=== PATIENT | female | born 1995 | race Caucasian/White ===

== ENCOUNTER 2018-05-25 14:04 | Emergency (ER) | payer OTHER ==
--- NOTE | 2018-05-25 15:08 | EDPHY ---
H & P Stated Complaint: suicidal ideation Time Seen by Provider: 05/25/18 14:09 HPI/ROS: 23-year-old female presents complaining of ongoing depression markedly worsened over the last 2 weeks with suicidal ideation. She states 6 months ago she attempted suicide with an overdose of Percocet and never reported to any hospital. She does not currently have a therapist or psychiatrist. She states she has been thinking stabbing herself. She had denies any recent changes or events that of contributed to her worsening depression. She states"I just want to feel this way anymore" Review of systems As per HPI General no fever no chills no weakness HEENT no eye pain no eye discharge. No eye redness, no sore throat Respiratory no cough, no shortness of breath Cardiac no chest pain, no peripheral edema GI no abdominal pain, no diarrhea, no constipation, no nausea, no vomiting no flank pain, no hematuria, no dysuria Musculoskeletal no myalgias, no joint pain Heme no easy bruising, no easy bleeding Endo no polyuria, no polydipsia Skin no rashes, no pruritus Neuro no syncope, no dizziness, no headaches Positive depression, positive suicidal ideation Source: Patient Exam Limitations: No limitations - Personal History LMP (Females 10-55): 15-21 Days Ago Current Tetanus Diphtheria and Acellular Pertussis (TDAP): Yes Tetanus Vaccine Date: unsure - Medical/Surgical History Hx Asthma: Yes Hx Chronic Respiratory Disease: No Hx Diabetes: No Hx Cardiac Disease: No Hx Renal Disease: No Hx Cirrhosis: No Hx Alcoholism: No Hx HIV/AIDS: No Hx Splenectomy or Spleen Trauma: No Other PMH: suicide attempt 6 months ago - Family History Significant Family History: No pertinent family hx - Social History Smoking Status: Current every day smoker - Physical Exam Exam: A 23-year-old female alert and oriented, tearful Vital signs stable Atraumatic normocephalic Neck no JVD Lungs clear to auscultation, no respiratory distress Heart regular rate and rhythm Extremities no cyanosis clubbing edema Skin-no evidence of trauma Constitutional: Initial Vital Signs Temperature (C) 36.8 C 05/25/18 14:32 Heart Rate 111 H 05/25/18 14:32 Respiratory Rate 20 05/25/18 14:32 Blood Pressure 136/100 H 05/25/18 14:32 O2 Sat (%) 93 05/25/18 14:32 O2 Delivery Mode Room Air Allergies/Adverse Reactions: No Known Allergies Allergy (Unverified 05/25/18 14:13) Home Medications: Medication Instructions Recorded NK [No Known Home Meds] 05/25/18 Medical Decision Making ED Course/Re-evaluation: Patient presents for depression and suicidal ideation. I contacted [facility] and discussed with Dr. Sandoval patient to be transferred to [facility] EMTALA form, M1 hold completed [facility] contacted for transfer. Imp depression, si Plan transfer to [facility] ED for psychiatric evaluation. Differential Diagnosis: Differential diagnosis considered but not limited to: Depression, anxiety, suicidal ideation, homicidal ideation, suicidal gesture Departure - Departure Disposition: [facility] ER Clinical Impression: Suicidal ideation Condition: Serious Referrals: Rekha Carl MD [Primary Care Provider] - As per Instructions
--- NOTE | 2018-05-25 15:49 | EDPHY ---
H & P Stated Complaint: suicidal ideation - Personal History LMP (Females 10-55): 15-21 Days Ago Current Tetanus Diphtheria and Acellular Pertussis (TDAP): Yes Tetanus Vaccine Date: unsure - Medical/Surgical History Hx Asthma: Yes Hx Chronic Respiratory Disease: No Hx Diabetes: No Hx Cardiac Disease: No Hx Renal Disease: No Hx Cirrhosis: No Hx Alcoholism: No Hx HIV/AIDS: No Hx Splenectomy or Spleen Trauma: No Other PMH: suicide attempt 6 months ago - Family History Significant Family History: No pertinent family hx - Social History Smoking Status: Current every day smoker Time Seen by Provider: 05/25/18 14:09 Constitutional: Initial Vital Signs Temperature (C) 36.8 C 05/25/18 14:32 Heart Rate 111 H 05/25/18 14:32 Respiratory Rate 20 05/25/18 14:32 Blood Pressure 136/100 H 05/25/18 14:32 O2 Sat (%) 93 05/25/18 14:32 O2 Delivery Mode Room Air Allergies/Adverse Reactions: No Known Allergies Allergy (Unverified 05/25/18 14:13) Home Medications: Medication Instructions Recorded NK [No Known Home Meds] 05/25/18 Medical Decision Making ED Course/Re-evaluation: CHIEF COMPLAINT: Psychiatric evaluation HISTORY OF PRESENT ILLNESS: The patient is a 23 y/o female arriving via EMS from [facility] for ongoing depression markedly worsened over the last 2 weeks with suicidal ideation. She states 6 months ago she attempted suicide with an overdose of Percocet and never reported to any hospital. She does not currently have a therapist or psychiatrist. She states she has been thinking about stabbing herself. She had denies any recent changes or events that of contributed to her worsening depression. She states "I just want to feel this way anymore". Due to the suicidal ideation she was sent to this emergency department for further evaluation. No headache, chest pain, shortness of breath, abdominal pain, urinary or bowel complaints, fevers, numbness, paresthesias. REVIEW OF SYSTEMS: A comprehensive 10 system review of systems is otherwise negative aside from elements mentioned in the history of present illness and medical decision making. PHYSICAL EXAM: General Appearance: Alert, well hydrated, appropriate, and non-toxic appearing. Head: Atraumatic without scalp tenderness or obvious injury Eyes: Pupils equal, round, reactive to light and accommodation, EOMI, no trauma , no injection. Ears: Clear bilaterally, no perforation, normal landmarks Nose: Atraumatic, no rhinorrhea, clear. Throat: There is no erythema or exudates, no lesions, normal tonsils, mucus membranes moist. Neck: Supple, 2+ carotid upstroke, nontender, no lymphadenopathy. Respiratory: No retractions, no distress, no wheezes, and no accessory muscle use. Lungs are clear to auscultation bilaterally. Cardiovascular: Regular rate and rhythm, no murmurs, rubs, or gallops. Bilateral carotid, radial, dorsalis pedis, and posterior tibial pulses intact. Good capillary refill all extremities. Gastrointestinal: Abdomen is soft, nontender, non-distended, no masses, no rebound, no guarding, no peritoneal signs. Musculoskeletal: Normal active ROM of all extremities, atraumatic. Neurological: Alert, appropriate, and interactive. The patient has normal DTRs and non-focal cranial nerves, motor, sensory, and cerebellar exam. Skin: No rashes, good turgor, no nodules on palpation. Past medical history: Suicidal ideations with a suicide attempt Past surgical history: Denies Family history: Denies Social history: Lives in [place], single, student DIFFERENTIAL DIAGNOSIS: The differential diagnosis for the patient's depression included but was not limited to functional and major depression, situational depression, medication side effect, drugs, and alcohol abuse. MEDICAL DECISION MAKING: The patient is a 23 y/o female arriving from [facility] for suicidal ideations. Patient is in no acute distress and is hemodynamically stable. We are awaiting psychiatric team's evaluation. Patient has known history of psychiatric disorders and is here for evaluation. 0: I have placed this patient on a detainer. 0: 1mg PO Ativan administered. 2154: 20mg PO Ambien administered so the patient can sleep tonight. 2299: Patient care turned over to Dr. Palomares at shift change. Psych evaluation pending at this time. (Rafita Dorman) 6:00 a.m.- Patient stable throughout my shift, sleeping for most of it. She is awaiting mental health evaluation this morning. The case will be signed out to Dr. Sanford at 7:00 a.m. At change of shift. (Rosalba Palomares) Other Provider: Care assumed at 0650 from Marielle with plan for mental health evaluation, pending. 952: not currently suicidal, evaluation complete with mom present, recommendation of Jh Blake And psychiatric evaluation is to vacated the mental health hold and discharge the patient, the patient and the mother both feel comfortable with this disposition. (Antonio Sanford) - Data Points Laboratory Results: Laboratory Results 05/25/18 15:59 05/25/18 15:59 Medications Given: Discontinued Medications Lorazepam (Ativan) 1 mg PO EDNOW ONE Stop: 05/25/18 19:31 Last Admin: 05/25/18 19:33 Dose: 1 mg Lorazepam (Ativan) 1 mg PO EDNOW ONE Stop: 05/26/18 08:10 Last Admin: 05/26/18 08:19 Dose: 1 mg Zolpidem Tartrate (Ambien) 20 mg PO EDNOW ONE Stop: 05/25/18 21:53 Last Admin: 05/25/18 21:55 Dose: 20 mg Departure - Departure Disposition: Home, Routine, Self-Care Clinical Impression: Suicidal ideation, Severe major depression Condition: Good Instructions: Suicide Prevention (ED) Referrals: Rekha Carl MD [Primary Care Provider] - As per Instructions Report Scribed for: Rafita Dorman Report Scribed by: Michelle Augustine Date of Report: 05/25/18 Time of Report: 15:51
[2018-05-25 16:35] LABS: PLATELET COUNT 301 10^3/uL (150-400)
[2018-05-25] MEDS ORDERED: LORazepam 1 MG TAB ONE (19:29)
[2018-05-25] MEDS ORDERED: LORazepam 1 MG TAB PO ONE (19:30)
[2018-05-25] MEDS ORDERED: ZOLPIDEM TARTRATE 5 MG TAB PO ONE (21:52)
[2018-05-25] MEDS ORDERED: ZOLPIDEM TARTRATE 5 MG TAB ONE (21:52)
[2018-05-26] MEDS ORDERED: LORazepam 1 MG TAB PO ONE (08:09)
[2018-05-26 10:04] VITALS: BP 110/75
--- NOTE | 2018-05-26 10:36 | ASMTTLCEVL ---
TLC Evaluation - Basic Information Evaluation Start Date and 05/26/2018 09:00 AM Time Hospital Status Answers: M1 Hold 72-hr M1 Hold Start Date 05/25/2018 02:23 PM and Time Patient statement Notes: I went to the urgent care in [place]. I really just wanted to come in to get help. Melia been feeling more depressed over the past couple of weeks. On Saturday night, I was thinking of getting non-prescribed Xanax to overdose with, but couldnt find any. I really dont want to , I just want to get some help. I can ensure my own safety if I can be discharged. I would like a referral for help. Narrative Notes: Pt is a 23 yo, single, not employed, light-complected female, with reported past history of depression which began in high school, initially self-presented to [facility] Urgent care ED in [place] with above chief complaints and was placed on M1 hold by [facility] provider and transported by ambulance to [facility] ED. Per M1: 23 yo F with severe depression, suicidal ideation, had considered stabbing herself. She came in today because she doesnt want to feel this way anymore, she wants help. Pt reported having previously been prescribed Lexapro and Prozac by her PCP Dr. Cunningham at [facility], but pt reported she did not consistently take either and has not been on either medications for over 6 months. She is currently prescribed Adderall (dosage unrecalled by pt) but has not taken any in the past month. She is prescribed Ambien 10 mg po 2 tabs at for sleep and has been on Ambien since high school. Pt reported previously being diagnosed with ADD while in middle school. Pt denied any past history of cutting/burning/self-harm behaviors and denied any history of eating disorder behaviors. Pt endorsed having some suicidal ideation but currently denied intent/plans to act on these thoughts and verbalized being able to ensure own safety in an outpatient setting. Diagnosis History Notes: Depression which began in high school. ADD diagnosed when in middle school. Prior suicide attempts Notes: Pt reported one prior suicide attempt 6 months ago in which she took an overdose of non-prescribed Percocet tabs. She did not seek medical assistance after the overdose and reported I just felt really sick the next day. Prior hospitalizations Notes: Pt denied any prior history of psychiatric hospitalization or rehabs. Treatment Responses Notes: N/A. History of violence Notes: Pt denied any past history of aggression/violence. Therapist: None. Psychiatrist: None currently. Has PCP Dr. Cunningham with [facility] who has prescribed Lexapro and Prozac in the past. Medications (name, dosage, route, freq uency) Notes: PCP Dr. Cunningham with [facility] who has prescribed Lexapro and Prozac in the past. Current home medications include: Adderall (dosage unrecalled by pt and pt has not taken it in a month); and Ambien 10 mg 2 tabs po hs. Allergies/Reaction Notes: NKDA. Sleep Notes: Pt reported it varies from sleeping all day to not at all. Appetite Notes: Pt reported having decreased appetite and that my stomach sometimes hurts when I eat. Medical/Surgical history Notes: Noncontributory. She reported having childhood asthma in high school only. Substance use history (frequency, intensity, his tory, duration) Notes: Pt reported having first tried alcohol at age 15. She reported she typically will drink alcohol to point of intoxication about 3 times/week. Her last use was on Saturday night 05/24/18, drank 5-6 shots of liquor. She reported having first tried marijuana at age 14 with last reported use being over 2 years ago. She reported she first tried cocaine at age 19 and will use it on a weekly basis/socially, with last reported use being 2 months ago. Pt denied any other illicit substance use history. BAL upon arrival was .07 at 1559 hrs on 05/25/18. UDS results negative for all tested substances. Family composition Notes: Pt reported that her parents officially when pt was 16 yo, but added that she was primarily raised by her mother. Pt is an only child. Need for family Answers: Yes participation in patient's care Family psychiatric/substance abuse history Notes: Mother has history of depression. Her father has history of schizophrenia. Maternal aunt and uncle have history of alcoholism as does a maternal grandfather. Developmental history Notes: Pt was born and raised in the [facility]. She appeared to have achieved normal childhood developmental milestones, however, began using alcohol and marijuana as an early teenager. Pt denied any childhood history of TBIs, LOC or concussions. Pt denied any childhood history of physical, emotional or sexual abuse/trauma. Abuse concerns Answers: None Marital status/children Notes: Pt is single, never , no dependents, and is not involved in a dating relationship. Living situation Notes: Pt resides with her mother, Frances in a townhouse in [place], [place]. Sexual history/orientation Notes: Not active. Heterosexual. Peer support/family strengths Notes: Pt identified her mother as her support. Education level/history Notes: Pt graduated from high school and was a sophomore attending [employer] until she dropped out. She was majoring in chemistry. Work history Notes: Pt is not employed. Notes: None. Legal Notes: Pt reported obtaining two MIP charges in high school for alcohol. Religion/Spiritual Notes: Pt reported having no particular jehovah's witness/spiritual beliefs/affiliations which would impact treatment. Leisure Notes: Pt stated sleep, drink. Collateral Notes: Per mother, Yolanda Simms who was present with pt in ED. Patient's strengths Answers: Honest (Please select at least TWO strengths): Motivated for Treatment Supportive Family Willingness TLC Evaluation - Mental Status Exam Appearance: Answers: Appropriate Clean Neat Eye Contact: Answers: Good/Direct Mood: Answers: Depressed Sad Affect: Answers: Appropriate Calm Congruent w/ Mood Flat Sad Subdued Behavior: Answers: Appropriate Cooperative Speech: Answers: Relevant Logical Clear Coherent Thought Process: Answers: Organized Oriented Alert Goal Oriented Intact Insight: Answers: Good Judgement: Answers: Good Depression Answers: Crying Spells Signs/Symptoms: Difficulty Concentrating Diminished Interest Diminished Pleasure Flat Affect Psychomotor Retardation Sad Mood Withdrawn Worthlessness Hallucinations: Answers: None Current Stage of Change Answers: Action Pt reported to have Answers: Yes suicidal/self-injuring ideation/behavior? Pt reported to be making Answers: No suicidal/self-injuring threats? Pt reported to have Answers: No aggression/assault ideation/behavior? Pt reported to be making Answers: No aggression/assault threats? Pt exhibits inability to Answers: No care for self/grave disability? Ideation/behavior is Answers: No chronic? Patient has a specific Answers: No plan? Pt has access to means to Answers: No execute the plan? Ideation involves Answers: No serious/lethal intent? Ideation has Answers: No delusional/hallucinatory content? History of Answers: Yes suicidal/self-injuring ideation, behavior, or threats? History of Answers: No aggressive/assaultive ideation, behavior, or threats? History of serious Answers: No physical harm to self/others while in treatment setting? TLC Evaluation - Suicide/Homicide Risk Suicide Risk Factors: Answers: Alcohol/Heavy Drug Use Anhedonia Flat Affect Global Insomnia Inadequate Social Support Intoxication Lack of Religion Support Lack of Social Support Lack/Loss of Employment Major Depression Prior Suicide Attempt(s) Single Homicide/violence risk Answers: None factors: Current Suicidal Answers: Yes Ideation? Current Suicide Ideation Since Saturday. Frequency: Current Suicidal Ideation Answers: Yes in the Past 48 Hours? Current Suicidal Ideation Answers: No in the Past Month? Current Suicidal Answers: No Ideation, Worst Ever? Suicide Internal Answers: Absence of Psychosis Protective Factors: Cassie with Stress Suicide External Answers: Positive Therapeutic Protective Factors: Relationships Ranking of patient's Answers: Low suicidal risk: Ranking of patient's Answers: Low homicidal risk: TLC Evaluation - Wrap-up BDI Total Score: 50 BDI Question #2 Score: 3 BDI Question #9 Score: 1 BSS Total Score: 19 AXIS I Diagnosis (include DSM-V and ICD-10 codes), must also be entered in [employer], which is the source of truth. Notes: Major Depressive Disorder, recurrent, moderate 296.32 (F33.1) Alcohol Use Disorder, severe 303.90 (F10.20) Cocaine Use Disorder, moderate 305.60 (F14.20) In consultation with [facility] ED physician, Antonio Sanford MD, Dr. Sanford concurred that pt does not appear to meet 27-65 criteria requiring psychiatric hospitalization as pt does not appear to be an imminent risk of harm to self/others/gravely disabled due to a mental illness condition. Dr. Sanford provided verbal order read back vacating hold at 0950 hrs Evaluation End Date and 05/26/2018 10:35 AM Time (HH:MM): Date Signed: 05/26/2018 10:36 AM Electronically Signed By:Jh Tee
--- NOTE | 2018-05-26 10:37 | ASMTTCLDSP ---
TLC Discharge Disposition Disposition: Answers: Discharge If Answers: Yes DISCHARGED: Patient/family given suicide hotline info & [employer] brochure? Disposition Notes: Notes: Pt stated commitment or ability to keep self safe, denied thoughts of self harm or harm to others. Pt expressed a desire to f/u with [facility]. Pt was given local hotline information and [facility] brochure After an Attempt and encouraged to follow up with [facility]. Discharge Concerns/Recommendations: Notes: In consultation with [facility] ED physician, Antonio Sanford MD, Dr. Sanford concurred that pt does not appear to meet 27-65 criteria requiring psychiatric hospitalization as pt does not appear to be an imminent risk of harm to self/others/gravely disabled due to a mental illness condition. Dr. Sanford provided verbal order read back vacating M1 hold at 0950 hrs. Was patient given the Answers: Not applicable Inpatient Behavioral Health Prohibited Belongings List while in the ED? Psychiatrist vacating M1 Antonio Sanford MD Hold: Date and time M1 hold 05/26/2018 09:50 AM vacated (time format is hh:mm): Type of Hold: Answers: M1/72-hour Hold Hold initiated by: Answers: ED Physician Date Signed: 05/26/2018 10:37 AM Electronically Signed By:Jh Tee
== END 2018-05-26 10:10 | disposition home or self-care (01) ==
LOC: CED 14:04
DX: R45.851 Suicidal ideations (principal); F32.2 Major depressive disorder, single episode, severe without psychotic features; F17.200 Nicotine dependence, unspecified, uncomplicated; Z91.5 Personal history of self-harm
CPT/HCPCS: 80305; G0480